=== PATIENT | male | born 1960 | race Caucasian/White ===

== ENCOUNTER 2024-07-21 10:23 | Emergency (ER) | payer OTHER ==
[2024-07-21] MEDS: Lidocaine 1% with EPINEPHrine 1:100,000 20 ML MDV INJECT ONE (10:50)
[2024-07-21] MEDS: Bacitracin Oint 1 GM U/D Packet TOP ONE (11:05)
[2024-07-21] MEDS: Lidocaine 1% with EPINEPHrine 1:100,000 50 ML MDV INFILT ONE (11:38)
== END 2024-07-21 11:11 | disposition home or self-care (01) ==
LOC: LB.ED 10:23
DX: S61.011A Laceration without foreign body of right thumb without damage to nail, initial encounter (principal); W56.51XA Bitten by other fish, initial encounter
CPT/HCPCS: 12001; 12002; 99282; 99283